=== PATIENT | male | born 1955 | race Caucasian/White ===

== ENCOUNTER 2019-03-06 01:48 | Emergency (ER) | payer MEDICARE, BC ==
[~2019-03-06] VITALS: Ht 172.7 cm; Wt 72.6 kg
[2019-03-06] MEDS ORDERED: VYVANSE 70 MG (02:08)
[2019-03-06] MEDS ORDERED: TADALAFIL 5 MG TABLET (02:08)
[2019-03-06] MEDS ORDERED: TRIMIX (02:08)
[2019-03-06] MEDS ORDERED: NYSTATIN 100000 UNIT/GM (02:08)
--- NOTE | 2019-03-06 02:20 | NUR ---
Pt. given ice packs for comfort,
--- NOTE | 2019-03-06 02:49 | NUR ---
Yessenia WELCH called for urology consult - unavailable at this time,
[2019-03-06] MEDS ORDERED: PHENYLEPHRINE 10 MG/1 ML VIAL ONE (02:57)
--- NOTE | 2019-03-06 03:12 | NUR ---
at bedside for procedure
--- NOTE | 2019-03-06 03:18 | NUR ---
Procedure not needed as erection had returned to more normal state, pt. states no pain,
--- NOTE | 2019-03-06 03:29 | NUR ---
Patient discharged to home in stable conditon. Written and verbal after care instructions given. Patient verbalizes understanding of instructions. Pt. d/c per MD order, d/c papers signed, all belongings w/ pt., ID band removed, ambulated off unit w/ steady gait, NAD
== END 2019-03-06 03:32 | disposition home or self-care (01) ==
LOC: ER 01:55
DX: N48.30 Priapism, unspecified (principal); K21.9 Gastro-esophageal reflux disease without esophagitis; Z79.899 Other long term (current) drug therapy
CPT/HCPCS: 99282; J3490; A4663; J2370